=== PATIENT | female | born 1980 | race Caucasian/White ===

== ENCOUNTER 2021-03-28 19:58 | Emergency (ER) | payer SELFPAY ==
--- NOTE | 2021-03-28 21:46 | EDM.PDOC ---
<Shama Root R - Last Filed: 03/28/21 21:41> ED HPI GENERAL MEDICAL PROBLEM - General Chief Complaint: Chest Pain Stated Complaint: POSSIBLE BROKEN RIB Time Seen by Provider: 03/28/21 21:18 Source of Information: Reports: Patient History Limitations: Reports: No Limitations - History of Present Illness INITIAL COMMENTS - FREE TEXT/NARRATIVE: Presents reporting right upper chest pain. The patient states that she was having intercourse yesterday morning. Her partner pushed on her right upper chest, she felt a pop and then pain in that area. Since that time she has had a lot of pain that increases with taking a deep breath, cough or certain movements. She is otherwise healthy without chronic medical problems. She is underweight. 25+ pack year smoking history. Has had a hysterectomy. 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 ED EXAM, GENERAL - Physical Exam Exam: See Below Exam Limited By: No Limitations General Appearance: Alert, Moderate Distress (Due to chest pain) Ears: Normal External Exam, Normal TMs Nose: Normal Inspection Throat/Mouth: Normal Inspection, Normal Oropharynx Head: Atraumatic, Normocephalic Neck: Normal Inspection, Supple Respiratory/Chest: Lungs Clear, Normal Breath Sounds, Other (Exquisite tenderness midclavicular line second and third ribs right, no deformity, ecchymosis) Cardiovascular: Normal Peripheral Pulses, Regular Rate, Rhythm, No Murmur GI/Abdominal: Soft Neurological: Alert, Oriented Psychiatric: Normal Affect, Normal Mood Skin Exam: Warm, Dry, Intact, Normal Color, No Rash Lymphatic: No Adenopathy Departure - Departure Disposition: Home, Self-Care 01 Clinical Impression: Ribs, multiple fractures Qualifiers: Encounter type: initial encounter Fracture type: closed Laterality: right Qualified Code(s): S22.41XA - Multiple fractures of ribs, right side, initial encounter for closed fracture - Discharge Information Instructions: Rib Fracture, [id number] Referrals: PCP,Not In Area [Primary Care Provider] - Forms: ED Department Discharge Additional Instructions: You were seen and evaluated in the ER today secondary to pain to your right anterior chest secondary to trauma. The x-ray reveals that you do have a fracture of your second and third ribs. You will be given a prescription for ibuprofen and [place] to help with your pain. Please make an appointment to follow-up with your doctor within the next week so they can assist you with long-term pain management as needed. Please return to the ER if you start developing new or concerning symptoms such as shortness of breath, coughing up blood. Please make sure that you take at least 10 deep breaths every hour while you are awake. The following information is given to patients seen in the emergency department who are being discharged to home. This information is to outline your options for follow-up care. We provide all patients seen in our emergency department with a follow-up referral. The need for follow-up, as well as the timing and circumstances, are variable depending upon the specifics of your emergency department visit. If you don't have a primary care physician on staff, we will provide you with a referral. We always advise you to contact your personal physician following an emergency department visit to inform them of the circumstance of the visit and for follow-up with them and/or the need for any referrals to a consulting specialist. The emergency department will also refer you to a specialist when appropriate. This referral assures that you have the opportunity for follow-up care with a specialist. All of these measure are taken in an effort to provide you with optimal care, which includes your follow-up. Under all circumstances we always encourage you to contact your private physician who remains a resource for coordinating your care. When calling for follow-up care, please make the office aware that this follow-up is from your recent emergency room visit. If for any reason you are refused follow-up, please contact the [facility] Emergency Department at and asked to speak to the emergency department charge nurse. [facility] [address] [place] [id number] [facility] [address] [place] [id number] Sepsis Event Note (ED) - Evaluation Sepsis Screening Result: No Definite Risk <David Rosario - Last Filed: 03/28/21 22:58> ED HPI GENERAL MEDICAL PROBLEM - History of Present Illness INITIAL COMMENTS - FREE TEXT/NARRATIVE: 10:53 PM: Signout received from Shama Root. Patient presents to ED complaining of right anterior chest wall pain secondary to trauma during sex. Patient's x-ray reveals a displaced fracture of her second and third ribs. No evidence of pneumothorax. Patient is clinically hemodynamically stable. Patient will be treated with pain medicines and will be discharged home with instructions to follow-up with her primary care physician for continued pain management. Patient was given a dose of ibuprofen and [place] here in the ED and will be discharged home with the same. This patient was seen and evaluated during the 2019 SARS-CoV-2 novel coronavirus pandemic period. Community viral transmission is ongoing at time of this encounter and the emergency department is operating under pandemic response procedures. Constitutional: Patient is oriented to person, place, and time. Appears well- developed and well-nourished. No distress. HEENT: Moist mucous membranes Head: Normocephalic and atraumatic Eyes: Right eye exhibits no discharge. Left eye exhibits no discharge. No scleral icterus Neck: Normal range of motion. No tracheal deviation present. Cardiovascular: Normal rate and regular rhythm. Pulmonary: Effort normal, no respiratory distress. Abdominal: No distention Musculoskeletal: Normal range of motion Neurologic: Alert and oriented to person, place and time. Skin: [place], warm and dry. Psychiatric: Normal mood and affect. Behavior is normal. Judgment and thought content normal. Nursing note and vital signs have been reviewed Reassessment at the time of disposition demonstrates that the patient is in no acute distress. The patient has remained stable throughout the entire ED visit and is without objective evidence for acute process requiring urgent intervention or hospitalization. The patient is stable for discharge, counseling is provided as documented above, discussed symptomatic treatment and specific conditions for return. I have spoken with the patient/caregiver and discussed todays findings, in addition to providing specific details for the plan of care. Questions are answered and there is agreement with the plan. ED ROS GENERAL - Review of Systems Review Of Systems: See Below Course - Vital Signs Last Recorded V/S: Last Vital Signs Temp 98.4 F 03/28/21 21:01 Pulse 96 03/28/21 21:01 Resp 17 03/28/21 21:01 BP 114/66 03/28/21 21:01 Pulse Ox 100 03/28/21 21:01 - Orders/Labs/Meds Orders: Active Orders 24 hr Category Date Time Status Acetaminophen/HYDROcodone [[place] 325-5 MG] Med 03/28/21 22:53 Once 1 tab PO ONETIME ONE Ibuprofen [Motrin] Med 03/28/21 22:53 Once 600 mg PO ONETIME ONE Departure - Departure Time of Disposition: 22:54 Condition: Good Sepsis Event Note (ED) - Focused Exam Vital Signs: Vital Signs Temp Pulse Resp BP Pulse Ox 03/28/21 21:01 98.4 F 96 17 114/66 100 - My Orders Last 24 Hours: My Active Orders 03/28/21 22:53 Acetaminophen/HYDROcodone [[place] 325-5 MG] 1 tab PO ONETIME ONE Ibuprofen [Motrin] 600 mg PO ONETIME ONE - Assessment/Plan Last 24 Hours: My Active Orders 03/28/21 22:53 Acetaminophen/HYDROcodone [[place] 325-5 MG] 1 tab PO ONETIME ONE Ibuprofen [Motrin] 600 mg PO ONETIME ONE
--- NOTE | 2021-03-28 22:27 | CR ---
INDICATION: Pain. TECHNIQUE: PA chest as well as 3 additional views of the right ribs. COMPARISON: None available. FINDINGS: Mildly displaced fractures of the right anterior 2nd and 3rd ribs. No focal pulmonary opacity, pneumothorax, or pleural fluid identified. Normal cardiac and mediastinal contours. IMPRESSION: Mildly displaced right anterior 2nd and 3rd rib fractures. No pneumothorax or pleural fluid identified. Dictated by Rafat Campos MD @ 03/28/2021 10:26:40 PM Dictated by: Rafat Campos MD @ 03/28/2021 22:26:59 (Electronically Signed)
[2021-03-28] MEDS ORDERED: Acetaminophen/HYDROcodone 325-5 MG Tab PO ONE (22:53)
[2021-03-28] MEDS ORDERED: Ibuprofen 600 MG Tab PO ONE (22:53)
== END 2021-03-28 23:12 | disposition home or self-care (01) ==
LOC: MW.ED 19:58
DX: S22.41XA Multiple fractures of ribs, right side, initial encounter for closed fracture (principal); F17.210 Nicotine dependence, cigarettes, uncomplicated; Z88.5 Allergy status to narcotic agent; Z90.710 Acquired absence of both cervix and uterus; W51.XXXA Accidental striking against or bumped into by another person, initial encounter
CPT/HCPCS: 71101; 99283; A9270

== ENCOUNTER 2021-07-29 08:29 | Emergency (ER) | payer SELFPAY | END 2021-07-29 09:58 | disposition home or self-care (01) | LOC: MW.ED 08:29 | DX: S39.012A Strain of muscle, fascia and tendon of lower back, initial encounter (principal); Z88.5 Allergy status to narcotic agent; Z72.0 Tobacco use; X50.0XXA Overexertion from strenuous movement or load, initial encounter; Y99.0 Civilian activity done for income or pay | CPT/HCPCS: 73502-26-RT; 73502-RT; 99283-25 ==